=== PATIENT | female | born 1945 | race Caucasian/White ===

== ENCOUNTER → 2023-09-30 | Outpatient (CLI) | payer MEDICARE, OTHER ==
--- NOTE | 2023-10-01 05:56 | MR ---
EXAMINATION TYPE: MR shoulder RT wo con DATE OF EXAM: 09/30/2023 COMPARISON: None HISTORY: Right shoulder pain with difficulty raising arm overhead for 5 months TECHNIQUE: Multiplanar, multisequence imaging of the right shoulder is performed without contrast. FINDINGS: Rotator Cuff: Increased signal in the infraspinatus and supraspinatus tendons with intramuscular apollo a. Findings most prominent involving the anterior fibers of the distal supraspinatus tendon where the re is focal partial tearing identified measuring 1.2 cm transversely coronal image 14. Intact subscap ularis tendon. Rotator cuff muscle bulk preserved. Acromioclavicular Joint: Mild narrowing and spurring with mild/moderate capsular hypertrophy Glenohumeral Joint: Moderate to large size joint effusion. No significant spurring. Labrum: The labrum appears grossly intact given limitation of non-arthrogram study. Biceps Tendon: The long head of biceps is in normal location within bicipital groove. Bone marrow signal: Subchondral cystic change along the posterior superior aspect of the head with sl ight increased T2 signal. Other: No additional significant abnormality is appreciated. IMPRESSION: 1. Tendinosis of infraspinatus tendon. There is more prominent tendinosis and partial tearing of the supraspinatus tendon. 2. Moderate to large sized glenohumeral joint effusion.
== END | disposition home or self-care (01) ==
LOC: RADMRIMAIN 14:16
PROVIDERS: ATTEND Family Medicine
DX: M67.813 Other specified disorders of tendon, right shoulder (principal); M75.111 Incomplete rotator cuff tear or rupture of right shoulder, not specified as traumatic; M25.411 Effusion, right shoulder